=== PATIENT | male | born 1940 | race Hispanic/Latino ===

== ENCOUNTER 2019-12-26 05:35 | Emergency (ER) | payer MEDICARE, OTHER ==
[~2019-12-26] VITALS: Ht 170.2 cm; Wt 81.6 kg
[~2019-12-26 05:35] MED LIST: DIABETES MEDS; Z CIPRO; Z.0.CATAPRES0.1 MG; Z.0.FLUTICASONE PRO1; Z.0.NORVASC5 MG
--- NOTE | 2019-12-26 06:18 | Emergency Department Note ---
History of Present Illnes History of Present Illness Chief Complaint: General Medicine Complaints History of Present Illness This is a 79 year old male arrives to the ED requesting assistance because he cannot sleep. Patient denies any other complaints including chest pain, shortness of breath, cough, fever, chills. Patient states he was on sleeping medication at one time but does not recall the name. Patient states he was able to drive himself to the ER with no difficulty, has no other complaints. Historian: Patient Arrival Mode: Car Onset (how long ago): week(s) Severity: mild Onset quality: gradual Duration (how long): week(s) Progression: unchanged Chronicity: chronic Past Medical/Family History Physician Review I have reviewed the patient's past medical and family history. Any updates have been documented here. Past Medical History Recent Fever: No Clinical Suspicion of Infectio: No New/Unexplained Change in Ment: No Past Medical History: Hypertension, Diabetes Other Medical History: Pt. is a poor historian Other Surgery: cardiac stent Social History Smoking Cessation: Never Smoker Counseling Performed: No Alcohol Use: Social Other Last Tetanus: unknown Review of Systems Review of Systems Constitutional: Reports no symptoms EENTM: Reports no symptoms Cardiovascular: Reports no symptoms Respiratory: Reports no symptoms Gastrointestinal: Reports no symptoms Genitourinary: Reports no symptoms Musculoskeletal: Reports no symptoms Integumentary: Reports no symptoms Neurological: Reports no symptoms Psychological: Reports no symptoms Endocrine: Reports no symptoms Hematological/Lymphatic: Reports no symptoms Physical Exam Related Data Allergies: Coded Allergies: No Known Drug Allergies (Verified Allergy, Unknown, 03/06/10) Triage Vital Signs Vital Signs Date Time Temp Pulse Resp B/P (MAP) Pulse Ox O2 Delivery O2 Flow Rate FiO2 12/26/19 05:47 98.4 98 20 180/82 97 Room Air Vital signs reviewed: Yes Physical Exam CONSTITUTIONAL Constitutional: Present well-developed, Present well-nourished HENT HENT: Present normocephalic, Present atraumatic, Present oropharynx clear/moist, Present nose normal HENT L/R: Present left ext ear normal, Present right ext ear normal EYES Eyes: Reports PERRL, Reports conjunctivae normal NECK Neck: Present ROM normal PULMONARY Pulmonary: Present effort normal, Present breath sounds normal CARDIOVASCULAR Cardiovascular: Present regular rhythm, Present heart sounds normal, Present capillary refill normal, Present normal rate GASTROINTESTINAL Abdominal: Present soft, Present nontender, Present bowel sounds normal GENITOURINARY Genitourinary: Present exam deferred SKIN Skin: Present warm, Present dry MUSCULOSKELETAL Musculoskeletal: Present ROM normal NEUROLOGICAL Neurological: Present alert, Present oriented x 3, Present no gross motor or sensory deficits PSYCHOLOGICAL Psychological: Present mood/affect normal, Present judgement normal Assessment & Plan Medical Decision Making MDM 79-year-old male arrives to the ED with complaints of difficulty sleeping. Patient noted to be sleeping in the waiting room, spoke to the patient at length about proper sleep hygiene. Patient is to follow up with PCP for further workup and management. Suggest melatonin. Assessment & Plan Final Impression: (1) Insomnia Depart Disposition: HOME, SELF-CARE Last Vital Signs Date Time Temp Pulse Resp B/P (MAP) Pulse Ox O2 Delivery O2 Flow Rate FiO2 12/26/19 05:47 98.4 98 20 180/82 97 Room Air Home Meds Reported Medications [Diabetes Meds] No Conflict Check 12/16/13 Fluticasone Propionate (Fluticasone Propionate) 16 Gm [place].susp, QD 02/14/11 Amlodipine Besylate (Norvasc) 5 Mg Tablet, QD 02/14/11 Clonidine Hcl (Catapres) 0.1 Mg Tablet, BID 02/14/11 MATT MARCOS, Dec 26, 2019 06:18
== END 2019-12-26 06:25 | disposition home or self-care (01) ==
LOC: ER 06:10
DX: G47.00 Insomnia, unspecified (principal); I10 Essential (primary) hypertension; E11.9 Type 2 diabetes mellitus without complications
CPT/HCPCS: 99282